=== PATIENT | male | born 2000 | race Hispanic/Latino ===

== ENCOUNTER → 2019-02-08 | Outpatient (CLI) | payer BC | END | disposition home or self-care (01) | LOC: OIH 15:26 | PROVIDERS: ATTEND Internal Medicine | DX: S93.402A Sprain of unspecified ligament of left ankle, initial encounter (principal); X58.XXXA Exposure to other specified factors, initial encounter; Y93.89 Activity, other specified; Y92.89 Other specified places as the place of occurrence of the external cause; Y99.8 Other external cause status | CPT/HCPCS: 73610 ==

== ENCOUNTER → 2020-02-19 | Outpatient (CLI) | payer BC | END | disposition home or self-care (01) | LOC: RAH 10:12 | PROVIDERS: ATTEND Internal Medicine | DX: R16.1 Splenomegaly, not elsewhere classified (principal); R16.0 Hepatomegaly, not elsewhere classified; K44.9 Diaphragmatic hernia without obstruction or gangrene; R10.12 Left upper quadrant pain | CPT/HCPCS: 74176 ==

== ENCOUNTER → 2020-03-05 | Outpatient (CLI) | payer BC | END | disposition home or self-care (01) | LOC: RAH 08:57 | PROVIDERS: ATTEND Internal Medicine | DX: R74.8 Abnormal levels of other serum enzymes (principal); R10.11 Right upper quadrant pain; R10.13 Epigastric pain | CPT/HCPCS: 76705 ==

== ENCOUNTER → 2020-12-31 | Outpatient (CLI) | payer BC | END | disposition home or self-care (01) | LOC: RAH 12:21 | PROVIDERS: ATTEND Physical Medicine & Rehabilitation | DX: M54.5 Low back pain (principal) | CPT/HCPCS: 72114 ==